=== PATIENT | male | born 1960 | race African-American/Black ===

== ENCOUNTER 2017-04-27 15:46 | Emergency (ER) | payer BC ==
[~2017-04-27] VITALS: Ht 177.8 cm; Wt 114.0 kg
[2017-04-27 21:20] VITALS: BP 139/90
== END 2017-04-27 21:31 | disposition home or self-care (01) ==
LOC: ER 16:52
DX: R07.89 Other chest pain (principal); E11.9 Type 2 diabetes mellitus without complications; I10 Essential (primary) hypertension; V89.2XXA Person injured in unspecified motor-vehicle accident, traffic, initial encounter; Y93.89 Activity, other specified; Y99.8 Other external cause status; Y92.410 Unspecified street and highway as the place of occurrence of the external cause; Z88.0 Allergy status to penicillin; Z98.890 Other specified postprocedural states
CPT/HCPCS: 99281

== ENCOUNTER 2024-07-26 10:51 | Inpatient (IN) | payer BC, OTHER ==
[~2024-07-26] VITALS: Ht 180.3 cm; Wt 115.4 kg
[2024-07-26] MEDS: INSULIN GLARGINE 100 UNITS/ML SUBCUT SCH (10:00)
[2024-07-26 11:24] LABS: BASOPHILS % 0.7 % (0.0-2.0); DIFFERENTIAL COMMENT 0; EOSINOPHILS % 0.3 % (0.0-5.0); HEMATOCRIT. 51.5 % (42.0-52.0); HEMOGLOBIN. 17.1 g/dL (14.0-18.0); LYMPHOCYTES % 9.8 % (20.0-50.0); MEAN CORPUSCULAR HEMOGLOBIN 26.8 pg (28.0-32.0); MEAN CORPUSCULAR HGB CONC 33.3 g/dL (31.0-37.0); MEAN CORPUSCULAR VOLUME 80.7 fL (80.0-94.0); MEAN PLATELET VOLUME 9.4 fl (7.4-10.4); MONOCYTES % 7.9 % (2.0-8.0); NEUTROPHILS % 81.3 % (40.0-76.0); PLATELET 262 x1000/uL (130-400); RED BLOOD CELL COUNT 6.38 mill/uL (4.7-6.1); WHITE BLOOD COUNT 8.6 x1000/uL (4.5-11.0)
[2024-07-26] MEDS: HYDROCHLOROTHIAZIDE 25MG TABLET PO ONE (11:30)
[2024-07-26 11:34] LABS: CHLORIDE 103 mEq/L (98-107); POTASSIUM 4.8 mEq/L (3.5-5.1); SODIUM 141 mEq/L (136-145)
[2024-07-26 11:35] LABS: CALCIUM 9.9 mg/dL (8.7-10.4); CARBON DIOXIDE 25 mEq/L (21-32)
[2024-07-26 11:40] LABS: CREATININE 1.1 mg/dL (0.6-1.3); GLUCOSE 262 mg/dL (70-105); TROPONIN I HIGH SENSITIVITY 47 ng/L (3.0-53); UREA NITROGEN BLOOD 13 mg/dL (9-23)
[2024-07-26 11:42] LABS: ALANINE AMINOTRANSFERASE 20 IU/L (10-49); ALBUMIN 4.8 g/dL (3.2-4.8); ASPARTATE AMINOTRANSFERASE 63 IU/L (<34); BILIRUBIN TOTAL 3.5 mg/dL (0.1-1.0); PROTEIN TOTAL 8.3 g/dL (6.0-8.3)
[2024-07-26 13:41] LABS: TROPONIN I HIGH SENSITIVITY 50 ng/L (3.0-53)
[2024-07-26] MEDS ORDERED: MORPHINE SULFATE 2 MG/ML INJ (NOT FOR IM USE) IV PRN (16:15)
[2024-07-26] MEDS ORDERED: DOCUSATE SODIUM 100MG CAPSULE PO PRN (16:15)
[2024-07-26] MEDS ORDERED: IPRATROPIUM/ALBUTEROL 0.5-3(2.5)MG/3ML NEB HHN PRN (16:15)
[2024-07-26] MEDS ORDERED: DEXTROSE 50% WATER 50ML SYRINGE IV PRN (16:15)
[2024-07-26] MEDS ORDERED: ONDANSETRON HCL 4MG/2ML INJ IV PRN (16:15)
[2024-07-26] MEDS ORDERED: GUAIFENESIN 200MG/10ML SUGAR FREE UDC PO PRN (16:15)
[2024-07-26] MEDS ORDERED: HYDROCODONE/ACETAMINOPHEN 5/325MG TABLET PO PRN (16:15)
[2024-07-26] MEDS ORDERED: ACETAMINOPHEN 325MG TABLET PO PRN ×2 (16:15)
[2024-07-26] MEDS ORDERED: MAGNESIUM/ALUMINUM HYDROXIDE/SIMETHICONE 30ML UDC PO PRN (16:15)
[2024-07-26] MEDS: CLONIDINE 0.1MG TABLET PO NR (16:20)
[2024-07-26] MEDS ORDERED: NALOXONE HCL 0.4MG/ML VIAL IV PRN (16:30)
[2024-07-26] MEDS: BLOOD SUGAR DIAGNOSTIC STRIP TEST SCH (17:38)
[2024-07-26] MEDS: INSULIN LISPRO 100 UNITS/ML SUBCUT SCH ×2 (17:40→18:36)
[2024-07-26 17:44] LABS: CLARITY URINE CLEAR (CLEAR); COLOR URINE DARK YELLOW (YELLOW); GLUCOSE URINE 2+ (NEGATIVE); KETONES URINE 1+ (NEGATIVE); LEUKOCYTE ESTERASE URINE NEGATIVE (NEGATIVE); NITRITE URINE NEGATIVE (NEGATIVE); OCCULT BLOOD URINE 1+ (NEGATIVE); PROTEIN URINE 2+ (NEGATIVE); SPECIFIC GRAVITY URINE 1.016 (1.005-1.030)
[2024-07-26 18:04] LABS: *AMPHETAMINES SCREEN URINE NEGATIVE (NEGATIVE)
[2024-07-26 18:05] LABS: *BARBITURATES SCREEN URINE NEGATIVE (NEGATIVE); *BENZODIAZEPINES SCREEN URINE NEGATIVE (NEGATIVE); *COCAINE SCREEN URINE NEGATIVE (NEGATIVE); CANNABINOID URINE SCREEN NEGATIVE (NEGATIVE); ECSTASY MDMA SCREEN URINE NEGATIVE (NEGATIVE); METHADONE URINE SCREEN NEGATIVE (NEGATIVE); OPIATES URINE SCREEN NEGATIVE (NEGATIVE); PHENCYCLIDINE URINE SCREEN NEGATIVE (NEGATIVE)
[2024-07-26 18:08] LABS: BACTERIA URINE 1+; SQUAMOUS EPITHELIAL CELL URINE FEW /lpf (RARE/1+); WBC URINE 0-2 /hpf (0-2)
[2024-07-26] MEDS: CLONIDINE 0.1MG TABLET PO PRN (18:36)
[2024-07-26 20:00] VITALS: BP 138/99; PULSE 104; RESP 19; TEMP 36.7; O2SAT 99
[2024-07-26] MEDS: LEVETIRACETAM 500MG PREMIX 100 ML IV SCH (21:43)
[2024-07-26] MEDS: HYDRALAZINE HCL 50MG TABLET PO SCH (21:44)
[2024-07-26 23:03] VITALS: BP 133/99; PULSE 104; RESP 19; TEMP 36.7
[2024-07-27] VITALS: BP 125/96; PULSE 91; RESP 19; TEMP 36.8; O2SAT 98
[2024-07-27 00:39] LABS: TROPONIN I HIGH SENSITIVITY 55 ng/L (3.0-53)
[2024-07-27 00:46] LABS: CREATINE KINASE 3018 IU/L (46-171)
[2024-07-27 04:00] VITALS: BP 132/97; PULSE 84; RESP 18; TEMP 36.5; O2SAT 100
[2024-07-27 07:47] LABS: DIFFERENTIAL COMMENT 0; EOSINOPHILS % 0.8 % (0.0-5.0); HEMATOCRIT. 48.4 % (42.0-52.0); LYMPHOCYTES % 14.8 % (20.0-50.0); MEAN CORPUSCULAR HEMOGLOBIN 26.8 pg (28.0-32.0); MEAN CORPUSCULAR HGB CONC 33.1 g/dL (31.0-37.0); MEAN CORPUSCULAR VOLUME 81.1 fL (80.0-94.0); MEAN PLATELET VOLUME 9.6 fl (7.4-10.4); MONOCYTES % 11.7 % (2.0-8.0); NEUTROPHILS % 71.7 % (40.0-76.0); PLATELET 230 x1000/uL (130-400); RED BLOOD CELL COUNT 5.97 mill/uL (4.7-6.1); RED CELL DISTRIBUTION WIDTH 16.3 % (11.6-14.6)
[2024-07-27 08:00] VITALS: BP 129/95; PULSE 80; RESP 19; TEMP 36.1; O2SAT 99
[2024-07-27 08:16] LABS: POTASSIUM 4.1 mEq/L (3.5-5.1)
[2024-07-27 08:17] LABS: CALCIUM 9.8 mg/dL (8.7-10.4)
[2024-07-27 08:22] LABS: TROPONIN I HIGH SENSITIVITY 43 ng/L (3.0-53)
[2024-07-27] MEDS: ASPIRIN 81MG EC TABLET PO SCH (08:24)
[2024-07-27 08:25] LABS: T4 FREE 1.5 ng/dL (0.89-1.76); THYROID STIMULATING HORMONE 0.82 uIU/mL (0.55-4.78)
[2024-07-27] MEDS: AMLODIPINE 5MG TABLET PO SCH (08:25)
[2024-07-27] MEDS: ENOXAPARIN 40MG/0.4ML SYR SUBCUT SCH (08:25)
[2024-07-27 08:32] LABS: CREATINE KINASE 2314 IU/L (46-171)
[2024-07-27 08:47] LABS: CREATININE 1.5 mg/dL (0.6-1.3)
[2024-07-27] MEDS: SODIUM CHLORIDE 0.45% 1,000 ML IV SCH (11:59)
[2024-07-27 12:00] VITALS: BP 145/97; PULSE 96; RESP 16; TEMP 36.4; O2SAT 98
[2024-07-27 16:00] VITALS: BP 144/106; PULSE 84; RESP 17; TEMP 36.3; O2SAT 98
[2024-07-27] MEDS ORDERED: ATORVASTATIN CALCIUM 40MG TABLET PO SCH (21:00)
[2024-07-27] MEDS ORDERED: FAMOTIDINE 20MG TABLET PO SCH (21:00)
[2024-07-27 21:02] VITALS: BP 139/104; PULSE 86; TEMP 97.8; O2SAT 99
== END 2024-07-27 21:05 | disposition short-term general hospital (02) | DRG 305 ==
LOC: ER 10:51 → EDBEDREQ 11:09 → CANBEDREQ 13:46 → EDBEDREQ 15:46 → ENRESERV 15:51 → 6WST 17:40
PROVIDERS: ADMIT Internal Medicine; ATTEND Internal Medicine
DX: I16.0 Hypertensive urgency (principal); Z60.2 Problems related to living alone; I10 Essential (primary) hypertension; G40.909 Epilepsy, unspecified, not intractable, without status epilepticus; Z68.35 Body mass index [BMI] 35.0-35.9, adult; E11.9 Type 2 diabetes mellitus without complications; K76.0 Fatty (change of) liver, not elsewhere classified; R00.0 Tachycardia, unspecified; R62.7 Adult failure to thrive; H05.20 Unspecified exophthalmos; R32 Unspecified urinary incontinence; D18.00 Hemangioma unspecified site; Z79.82 Long term (current) use of aspirin; Z79.899 Other long term (current) drug therapy; Z79.4 Long term (current) use of insulin; Z91.148 Patient's other noncompliance with medication regimen for other reason; Z88.0 Allergy status to penicillin; Z74.09 Other reduced mobility; Z60.8 Other problems related to social environment
CPT/HCPCS: 36415; 71045; 76700; 80048; 80061; 80076; 80305; 81003; 82550; 82962; 83036; 84439; 84443; 84484; 85025; 93005; 97166; 99285; J1650; J1815; J1953